=== PATIENT | female | born 1960 | race Caucasian/White ===

== ENCOUNTER → 2023-02-26 | Outpatient (CLI) | payer BC ==
--- NOTE | 2023-02-26 09:45 | Diagnostic Imaging Report ---
INDICATION: Injury in September. Continued pain. EXAMINATION: Right elbow 02/26/2023. 3 views of the elbow FINDINGS: There is no evidence for an acute fracture or dislocation. The joint spaces are well maintained. There is no significant soft tissue swelling. IMPRESSION: No acute process. Dictated by: Dictated on workstation # [id number]
== END ==
LOC: ORTHO 09:08
PROVIDERS: ATTEND Orthopaedic Surgery
DX: M77.11 Lateral epicondylitis, right elbow (principal)
CPT/HCPCS: 20551; 73080; G0463

== ENCOUNTER → 2023-04-02 | Outpatient (CLI) | payer BC | LOC: ORTHO 15:15 | PROVIDERS: ATTEND Orthopaedic Surgery | DX: M77.11 Lateral epicondylitis, right elbow (principal) | CPT/HCPCS: 99213 ==